=== PATIENT | female | born 1995 | race Caucasian/White ===

== ENCOUNTER 2020-12-06 18:09 | Emergency (ER) | payer MEDICAID, SELFPAY ==
[2020-12-06 18:28] VITALS: BP 128/80; PULSE 94; RESP 16; TEMP 36.4; O2SAT 100; BMI 20.5
[2020-12-06 18:52] LABS: Glucose Urine UA NEG (NEG); Leukocyte Esterase Urine 2+ (NEG); Nitrite Urine POS (NEG); UACC Culture Trigger YES; Urine Blood 3+ (NEG); Urine Ketones NEG (NEG); Urine Protein 2+ MG/DL (NEG-TRACE)
[2020-12-06 18:53] LABS: Appearance Urine HAZY; Color Urine YELLOW
[2020-12-06 18:54] LABS: UPreg QC Valid YES; Urine Pregnancy NEGATIVE (NEGATIVE)
[2020-12-06 19:02] LABS: Bacteria Urine 2+ /LPF; RBC Urine 50-75 /HPF (0); Squamous Epithelial Cell Urine 1+ /LPF; WBC Urine 50-75 /HPF (0-4)
[2020-12-06 19:50] LABS: MANUAL DIFF FLAG NO
[2020-12-06 19:52] LABS: Basophils Percent Auto 0.3 % (0-2); Eosinophils Absolute Auto 0.1 X10*3/uL (0.0-0.4); Eosinophils Percent Auto 0.5 % (0-4); Hemoglobin 12.4 g/dl (12.0-16.0); Imm Gran Abs Auto 0.04 X10*3/uL (0.00-0.03); Imm Gran Pct Auto 0.3 % (0.0-0.4); Lymphocytes Absolute Auto 1.4 X10*3/uL (1.2-4.9); Lymphocytes Percent Auto 11.1 % (20-40); Mean Corpuscular HGB Conc 32.6 g/dl (31.0-35.0); Mean Corpuscular Hemoglobin 27.2 pg (27.0-33.0); Mean Corpuscular Volume 83.3 fL (80-98); Mean Platelet Volume 11.6 fL (9.4-12.3); Monocytes Absolute Auto 0.8 X10*3/uL (0.1-1.2); Monocytes Percent Auto 6.1 % (2-11); Neutrophils Absolute Auto 10.3 X10*3/uL (2.0-8.3); Neutrophils Percent Auto 81.7 % (45-73); Platelet Count 261 X10*3/uL (160-400); Red Blood Count 4.56 X10*6/uL (4.20-5.50); Red Cell Distribution Width 13.6 % (11.0-16.0); White Blood Count 12.6 X10*3/uL (4.8-10.8)
[2020-12-06 20:19] LABS: Alanine Aminotransferase 13 U/L (0-31); Albumin Level 4.5 g/dL (3.5-5.0); Alkaline Phosphatase 91 U/L (39-117); Anion Gap 11 (12-20); Aspartate Amino Transferase 13 U/L (5-31); Bilirubin Total 0.6 mg/dL (0.0-1.0); Blood Urea Nitrogen 8 mg/dL (9-16); Calcium 10.3 mg/dL (8.4-10.2); Carbon Dioxide 28 mmol/L (22-29); Chloride 102 mmol/L (96-108); Creatinine Clr Calc Pharmacy 72.1; Estimated Glomerular Filt Rate > 60; Glucose Random 84 mg/dL (60-115); Potassium 4.1 mmol/L (3.3-5.1); Sodium 137 mmol/L (135-145); Total Protein 7.8 g/dL (6.5-8.0)
[2020-12-06 21:07] VITALS: BP 126/80; PULSE 96; RESP 15; TEMP 37; O2SAT 100
--- NOTE | 2020-12-06 21:36 | ED.FEMALEGU ---
HPI - Female Genitourinary General Chief complaint: Urogenital-Female Stated complaint: blood in urine Time Seen by Provider: 12/06/20 21:34 Source: patient Mode of arrival: ambulatory Limitations: no limitations History of Present Illness HPI Narrative: 25-year-old female who presents emergency department for evaluation of lower abdominal pain. Patient states the pain started this morning came on suddenly. She describes the pain as a poking constant sensation which is 8/10 at its worst. She does have dysuria and urinary frequency, she did notice blood in the urine. Patient states she is sexually active and last had intercourse 1 week prior. She has never had a urinary tract infection. She denied fever, chills, chest pain, shortness of breath, flank pain. She does take control pills. Related Data Home Medications Medication Instructions Recorded Confirmed levonorgestrel-ethinyl estradiol 1 tab PO DAILY 12/06/20 12/06/20 0.1 mg-20 mcg tablet (Larissia) spironolactone 50 mg tablet 1 tab PO DAILY 12/06/20 12/06/20 Previous Rx's Medication Instructions Recorded nitrofurantoin 100 mg PO Q12H 7 Days #14 cap 12/06/20 monohydrate/macrocrystals 100 mg capsule (Macrobid) phenazopyridine 200 mg tablet 200 mg PO TID PRN 3 Days #9 tab 12/06/20 (Pyridium) Allergies Allergy/AdvReac Type Severity Reaction Status Date / Time No Known Allergies Allergy Verified 12/06/20 18:31 [No Known Allergies*] Review of Systems Review of Systems: Yes all other systems are reviewed and are negative COUNT INCLUDES THE [facility] Past Medical History COUNT INCLUDES THE [facility] Narrative: Past medical history: None. Past surgical history: None. Social history: She denies tobacco use, she states she rarely drinks alcohol, she denies drug use. Medical History (Updated 12/06/20 @ 21:58 by Linus Cárdenas MD) Patient denies significant medical history Social History Social History Alcohol intake: current Alcohol intake frequency: holidays/special occasions only Patient Tobacco Use Status: Never used Tobacco Use of substances other than those prescribed or required for medical reasons: No Advance Directives: No Advance Directives Information Provided: Yes Patient : No Physical Exam Vital Signs: Vital Signs: Last Vital Signs Temp 98.6 F 12/06/20 21:07 Pulse 96 12/06/20 21:07 Resp 15 12/06/20 21:07 BP 126/80 12/06/20 21:07 Pulse Ox 100 12/06/20 21:07 Body Mass Index 20.5 Const: General: cooperative and healthy appearing Orientation/consciousness: oriented to person and oriented to place Limitations: no limitations HENMT: Head: Yes normal to inspection, Yes normocephalic and Yes atraumatic Ears: external ears normal General nose exam: Normal external nose present Face and sinus: Yes normal facial exam Mouth: Normal oral and palatal mucosa present Throat: Yes posterior oropharynx normal Eyes: Periorbital: periorbital findings normal Eyelids: Yes eyelids normal Conjunctivae: conjunctivae normal Sclerae: sclerae normal Corneas: corneas normal Pupils: Equal, round and reactive pupils present Direct Ophthalmoscopy: normal light reflex Neck: Neck: Yes full ROM, Yes no lymphadenopathy, Yes no meningeal signs, Yes trachea midline and Yes supple Chest: Chest palpation & inspection: normal inspection of the chest and normal palpation of entire chest wall Resp: Effort & Inspection: normal respiratory effort and able to speak in complete sentences Auscultation: clear to auscultation bilaterally Cardio: Rate: regular rate Rhythm: regular rhythm Heart sounds: S1 normal heart sound present, S2 normal heart sound present and no murmurs GI: Inspection: Yes normal to inspection Palpation (GI): Soft to palpation, Tenderness to palpation present (GI) suprapubicly (Moderate), no guarding, not rigid and No hepatosplenomegaly present : General: Yes no CVA tenderness Back/Spine/Pelvis: Back: no CVA tenderness Cervical Spine: normal cervical lordosis Thoracic/Lumbar Spine: thoracic and lumbar spine normal to inspection Skin: Lesions: no lesions Rashes: no rashes Wounds: no wounds Neuro: General: oriented to person, oriented to place and no meningeal signs Cranial nerves: Yes CN's II-XII intact bilaterally and Yes Equal, round and reactive pupils present Cognition (Neuro): normal cognition Motor exam (neuro): 5/5 motor strength present throughout Extrem: General: Yes normal to inspection and Yes full ROM Psych: Appearance: well kempt Mental Status: mental status grossly normal Speech and movement: Normal speech and movement present Affect: normal affect Attitude: cooperative Thought process: Normal thought process present Thought content: Normal thought content present Course Course Course Narrative: 25-year-old female who presents emergency department for evaluation of blood in the urine, frequency, urgency and abdominal pain. Patient's physical examination did reveal suprapubic tenderness otherwise was unremarkable. Patient has slight elevation white blood count [id number], normal kidney functions, negative test. A urinalysis was positive for blood, nitrates and leukocyte esterase. Microscopic revealed 50-75 RBCs, 50-75 WBCs and 2+ bacteria. Patient's presentation is consistent with acute cystitis. She was given Macrobid 100 mg orally and Pyridium 200 mg orally here in the emergency department. She was prescribed Macrobid 100 mg twice a day for 7 days and Pyridium 200 mg 3 times a day as needed for dysuria. The patient was given verbal and printed instructions prior to discharge. The patient was advised to follow-up with her PCP in 2 days and to return to the emergency department if her symptoms get worse or if she develops any new symptoms that are concerning to her. MDM - Female Genitourinary Lab Data Result diagrams: 12/06/20 19:47 12/06/20 19:47 Labs: Lab Results 12/06/20 12/06/20 12/06/20 Range/Units 18:47 18:47 19:47 WBC 12.6 H (4.8-10.8) X10*3/uL RBC 4.56 (4.20-5.50) X10*6/uL Hgb 12.4 (12.0-16.0) g/dl Hct 38.0 (37-47) % MCV 83.3 (80-98) fL MCH 27.2 (27.0-33.0) pg MCHC 32.6 (31.0-35.0) g/dl RDW 13.6 (11.0-16.0) % Plt Count 261 (160-400) X10*3/uL MPV 11.6 (9.4-12.3) fL Immature Gran % (Auto) 0.3 (0.0-0.4) % Neut % (Auto) 81.7 H (45-73) % Lymph % (Auto) 11.1 L (20-40) % [place] % (Auto) 6.1 (2-11) % Eos % (Auto) 0.5 (0-4) % Baso % (Auto) 0.3 (0-2) % Lymph # (Auto) 1.4 (1.2-4.9) X10*3/uL [place] # (Auto) 0.8 (0.1-1.2) X10*3/uL Eos # (Auto) 0.1 (0.0-0.4) X10*3/uL Baso # (Auto) 0.0 (0.0-0.2) X10*3/uL Abs Immat Gran (auto) 0.04 H (0.00-0.03) X10*3/uL Absolute Neuts (auto) 10.3 H (2.0-8.3) X10*3/uL Absolute Nucleated RBC 0.000 (0.0-0.012) X10*3/uL Nucleated RBC % (auto) 0.0 (0.0-0.2) /100WBC Sodium (135-145) mmol/L Potassium (3.3-5.1) mmol/L Chloride (96-108) mmol/L Carbon Dioxide (22-29) mmol/L Anion Gap (12-20) BUN (9-16) mg/dL Creatinine (0.5-1.4) mg/dL Estim Creat Clear Calc Estimated GFR Random Glucose (60-115) mg/dL Calcium (8.4-10.2) mg/dL Total Bilirubin (0.0-1.0) mg/dL AST (5-31) U/L ALT (0-31) U/L Alkaline Phosphatase (39-117) U/L Total Protein (6.5-8.0) g/dL Albumin (3.5-5.0) g/dL Urine Color YELLOW Urine Appearance HAZY Urine pH 6.0 (5.0-8.0) Ur Specific [place] 1.020 (1.005-1.025) Urine Protein 2+ H (NEG-TRACE) MG/DL Urine Glucose (UA) NEG (NEG) MG/DL Urine Ketones NEG (NEG) MG/DL Urine Blood 3+ H (NEG) Urine Nitrite POS H (NEG) Ur Leukocyte Esterase 2+ H (NEG) Urine RBC 50-75 H (0) /HPF Urine WBC 50-75 H (0-4) /HPF Ur Squamous Epith Cells 1+ /LPF Urine Bacteria 2+ /LPF Urine Test NEGATIVE (NEGATIVE) 12/06/20 Range/Units 19:47 WBC (4.8-10.8) X10*3/uL RBC (4.20-5.50) X10*6/uL Hgb (12.0-16.0) g/dl Hct (37-47) % MCV (80-98) fL MCH (27.0-33.0) pg MCHC (31.0-35.0) g/dl RDW (11.0-16.0) % Plt Count (160-400) X10*3/uL MPV (9.4-12.3) fL Immature Gran % (Auto) (0.0-0.4) % Neut % (Auto) (45-73) % Lymph % (Auto) (20-40) % [place] % (Auto) (2-11) % Eos % (Auto) (0-4) % Baso % (Auto) (0-2) % Lymph # (Auto) (1.2-4.9) X10*3/uL [place] # (Auto) (0.1-1.2) X10*3/uL Eos # (Auto) (0.0-0.4) X10*3/uL Baso # (Auto) (0.0-0.2) X10*3/uL Abs Immat Gran (auto) (0.00-0.03) X10*3/uL Absolute Neuts (auto) (2.0-8.3) X10*3/uL Absolute Nucleated RBC (0.0-0.012) X10*3/uL Nucleated RBC % (auto) (0.0-0.2) /100WBC Sodium 137 (135-145) mmol/L Potassium 4.1 (3.3-5.1) mmol/L Chloride 102 (96-108) mmol/L Carbon Dioxide 28 (22-29) mmol/L Anion Gap 11 L (12-20) BUN 8 L (9-16) mg/dL Creatinine 0.82 (0.5-1.4) mg/dL Estim Creat Clear Calc 72.1 Estimated GFR > 60 Random Glucose 84 (60-115) mg/dL Calcium 10.3 H (8.4-10.2) mg/dL Total Bilirubin 0.6 (0.0-1.0) mg/dL AST 13 (5-31) U/L ALT 13 (0-31) U/L Alkaline Phosphatase 91 (39-117) U/L Total Protein 7.8 (6.5-8.0) g/dL Albumin 4.5 (3.5-5.0) g/dL Urine Color Urine Appearance Urine pH (5.0-8.0) Ur Specific [place] (1.005-1.025) Urine Protein (NEG-TRACE) MG/DL Urine Glucose (UA) (NEG) MG/DL Urine Ketones (NEG) MG/DL Urine Blood (NEG) Urine Nitrite (NEG) Ur Leukocyte Esterase (NEG) Urine RBC (0) /HPF Urine WBC (0-4) /HPF Ur Squamous Epith Cells /LPF Urine Bacteria /LPF Urine Test (NEGATIVE) Discharge Plan Discharge Clinical Impression: Urinary tract infection Qualifiers: Urinary tract infection type: acute cystitis Hematuria presence: with hematuria Qualified Code(s): N30.01 - Acute cystitis with hematuria Patient Disposition: Home, Self-Care Instructions: Urinary Tract Infection in Women (ED) Additional Instructions: Your blood work was normal. Your urine tests consistent with the urinary tract infection. Your test was negative. Take Macrobid 100 mg pills, 1 pill every 12 hours for 7 days. Make sure you take all 7 days worth of this antibiotic. Take Pyridium 200 mg pills, 1 pill every 6 hours as needed for painful urination. Take ibuprofen 200 mg pills, 3 pills every 6 hours as needed for pain. Take Tylenol (acetaminophen) 500 mg pills, 2 pills every 4 to 6 hours as needed for pain. Follow-up with your doctor in 2 days. Please return to the emergency department if your symptoms get worse or if you develop any symptoms that are concerning to you. Prescriptions: New nitrofurantoin monohyd/m-cryst [Macrobid] 100 mg capsule 100 mg PO Q12H 7 Days Qty: 14 RF: 0 phenazopyridine [Pyridium] 200 mg tablet 200 mg PO TID PRN (Reason: Burning with urination) 3 Days Qty: 9 RF: 0 No Action levonorgestrel-ethinyl estrad [Larissia] 0.1-20 mg-mcg tablet 1 tab PO DAILY RF: 0 spironolactone 50 mg tablet 1 tab PO DAILY RF: 0
[2020-12-06 22:00] VITALS: BP 119/68; PULSE 91; RESP 16; O2SAT 100
[2020-12-06] MEDS: Phenazopyridine HCL 200 MG TABLET PO (22:05)
[2020-12-06] MEDS: Nitrofurantoin Monohyd/M-Cryst 100 MG CAPSULE PO (22:05)
== END 2020-12-06 22:13 | disposition home or self-care (01) ==
PROVIDERS: Emergency Provider Emergency Medicine Emergency Medical Services
DX: N30.01 Acute cystitis with hematuria (principal)
CPT/HCPCS: 36415; 80053; 81001; 81025; 85025; 87086; 87088; 87186; 99283; 99285